=== PATIENT | female | born 1980 | race African-American/Black ===

== ENCOUNTER 2022-09-06 12:49 | Emergency (ER) | payer OTHER ==
[~2022-09-06] VITALS: Ht 157.5 cm; Wt 86.2 kg
[2022-09-06 12:55] VITALS: TEMP 98.1
[2022-09-07 01:25] VITALS: BP 142/78
== END 2022-09-07 01:25 | disposition other institution (70) ==
LOC: ED 12:49
DX: R45.851 Suicidal ideations (principal); F32.A Depression, unspecified
CPT/HCPCS: 99285